=== PATIENT | male | born 1950 | race Caucasian/White ===

== ENCOUNTER 2025-01-11 14:19 | Inpatient (IN) | payer OTHER, MEDICARE ==
[~2025-01-11] VITALS: Ht 182.9 cm; Wt 87.8 kg
--- NOTE | 2025-01-11 14:37 | ELECTROCARDIOGRAPH REPORT ---
[facility] Test Date: 2025-01-11 Test Time: 14:28:46 Pat Name: JOHN CUENCA Department: EMERGENCY ROOM Room: [place] [address] Gender: M Deburr Operator: PATRICK : 1950 Requested By: DEPARTMENT EMERGENCY Order Number: [id number] Reading MD: Dr. Cristian Castro Measurements Intervals Renick Rate: 63 P: 10 CO: 170 QRS: 15 QRSD: 105 T: 33 QT: 425 QTc: 436 Interpretive Statements Sinus rhythm Electronically Signed On 01-13-2025 19:27:[address] Cristian Castro Please click the below link to view image of tracing.
--- NOTE | 2025-01-11 14:50 | Physician Documentation ---
History of Present Illness ~ Chief Complaint: Chest Pain Stated Complaint: CP Time Seen by MD: 14:42 HPI This very pleasant 74-year-old male presents to the ED after experiencing 30 minutes of left-sided chest pain which included shortness of breath nausea and weakness. Up upon arrival of EMS he received one dose of nitro which alleviated his chest pain and shortness of breath. Patient also receives 324 of aspirin EN route He went from 150 systolic to the low 100s. Initial EKG showed no signs of ST-elevation and was sinus rhythm without any axis deviation At this time patient states he has 2/10 chest pain but feels much better. The patient denies any cardiac history however he is being treated for hypertension and hyperlipidemia. he takes atorvastatin and amlodipine. Day of Onset: Jan 11, 2025 Medication Reconciliation Allergies: Coded Allergies: No Known Allergies (Unverified , 01/11/25) Review of Systems All Other Systems at this time: Reviewed and Negative ROS As stated above in the HPI, otherwise all systems are reviewed and negative. Physical Exam Vital Signs: Temperature: 98.5, Source: Oral, Heart Rate: 64, Respiratory Rate: 12, BP: 110/56, Pulse Oximetry: 96, Weight: 87.800 Physical Exam General: Alert, no apparent distress. Respiratory: Lungs clear, no respiratory distress. Chest: No accessory muscle use. Cardiovascular: Regular rate and rhythm, no murmurs. Gastrointestinal: Soft, nontender, nondistended. Bowels sounds present. Extremities: Normal range of motion, no deformity. Neurologic: Oriented x4. Psychiatric: Normal mood and affect. Skin: Normal color, warm and dry. No edema, no ecchymosis. Progress Results/Orders Results/Orders Orders - JUSTINO HWANG NP Nitroglycerin Sublingual Tab (Nitrostat (01/11/25 16:20) Page Hospitalist (01/11/25 ) Medications Received in ER Medications (Trade) Dose Ordered Sig/Nicolas Route PRN Reason Start Time Stop Time Status Last Admin Dose Admin (Nitrostat SL tablet) 0.4 mg Q5M PRN SL Chest pain Q5min PRNx3-call 01/11/25 16:20 01/11/25 16:22 0.4 MG Vital Signs 01/11/25 01/11/25 01/11/25 14:36 15:12 15:30 Temp 98.5 Pulse 64 60 Resp 12 15 B/P (MAP) 110/56 124/61 (82) Pulse Ox 96 97 O2 Flow Rate 0 Laboratory Tests Test 01/11/25 14:55 01/11/25 16:53 White Blood Count 6.1 Red Blood Count 3.66 L Hemoglobin 12.0 L Hematocrit 35.4 L Mean Corpuscular Volume 96.8 Mean Corpuscular Hemoglobin 32.7 H Mean Corpuscular Hemoglobin Concent 33.8 Red Cell Distribution Width 14.3 Platelet Count 256 Mean Platelet Volume 7.9 Neutrophils (%) (Auto) 59.7 Lymphocytes (%) (Auto) 25.9 Monocytes (%) (Auto) 12.1 H Eosinophils (%) (Auto) 1.9 Basophils (%) (Auto) 0.4 Neutrophils # (Auto) 3.6 Lymphocytes # (Auto) 1.6 Monocytes # (Auto) 0.7 Eosinophils # (Auto) 0.1 Basophils # (Auto) 0.0 CBC Comment Sodium Level 141 Potassium Level 3.6 Chloride Level 107 Carbon Dioxide Level 25.7 Anion Gap 8 Blood Urea Nitrogen 22 H Creatinine 1.07 Estimated GFR/1.73 m2 68 BUN/Creatinine Ratio 20.6 H Glucose Level 128 H Calcium Level 8.1 L Troponin I High Sensitivity 4 Pro-B-Type Natriuretic Peptide 112 Albumin 3.4 Chemistry Comments Medical Decision Making Findings At approximately four teen 100 patient began to have chest pain again. Nursing staff gave the patient 0.4 sublingual nitro which alleviate his chest pain. The patient did not did not test positive for troponins or an elevated proBNP nor was his x-ray concerning for cardiomegaly. At this time, I am going to request hospitalization for cardiology evaluation. Departure Disposition: ADMITTED INPATIENT Impression: Primary Impression: Chest pain Additional Impression: Acute chest pain Condition: Stable Referrals: NO PRIMARY CARE PROVIDER (PCP) Signature Scribe Signature: e Attestation: Scribed for Justino Hwang Alpine Patroller by Justino Rodriguez NP . 01/11/25 16:35 JUSTINO HWANG NP Jan 11, 2025 14:50
[2025-01-11 15:02] LABS: MEAN PLATELET VOLUME 7.9 FL (7.4-10.4); RED CELL DISTRIBUTION WIDTH 14.3 % (11.5-14.5)
--- NOTE | 2025-01-11 15:05 | RADIOLOGY REPORT ---
CHEST RADIOGRAPH Indication: CP Technique: Single frontal view of the chest was obtained Comparison: None FINDINGS: Lines and Tubes: None Lungs: No focal consolidation. Pleura: No effusion. No pneumothorax. Cardiomediastinal contours: Unremarkable Bones: No acute osseous abnormality. IMPRESSION: No acute cardiopulmonary disease.
[2025-01-11 15:24] LABS: CREATININE 1.07 MG/DL (0.60-1.10); PRO BRAIN NATRIURETIC PEPTIDE 112 PG/ML (0-125); TOTAL CARBON DIOXIDE 25.7 MMOL/L (24-32); eCRCL 67 ML/MIN; eGFR 68 ML/MIN
--- NOTE | 2025-01-11 18:12 | HISTORY AND PHYSICAL-Residence ---
History & Physical Providers to CC Resident Creating Document: JOE SÁNCHEZ, RES ~ History of Present Illness Primary Medical Doctor: Dr. Greer. [facility] Reason for Admit\Complaint: Chest pain History of Present Illness PCP: [facility]. Dr. 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 74-year-old male patient with past medical history of hypertension and dyslipidemia came to the hospital with chief complaint of chest pain. The patient state that early this afternoon around 1:15 p.m. he started feeling left-sided chest pain described as stabbing type, with radiation to the left shoulder, 6/10 in intensity. The patient mentioned that the pain did not improve reason for which he decided to come to the hospital. When the patient was in the emergency department he received two doses of nitroglycerin which helped with the pain until the complete resolution. The patient describes that this is the 1st time that he has a pain like this. Associated to his pain the patient also endorses some shortness of breath, associated lightheadedness and nausea which also resolved after the nitroglycerin. As per patient he usually walks by himself without use of cane or walker. At this moment the patient denies any chest pain, shortness of breath, palpitations, urinary or intestinal symptoms. Allergies: Coded Allergies: No Known Allergies (Unverified , 01/11/25) Past Medical History Past Medical History Hypertension taking amlodipine 10 mg HS Dyslipidemia taking atorvastatin 40 mg daily. Past Surgical History Surgical History Comment Tonsillectomy at the age of [age] years old. Past Social History Smoking: Non-Smoker Alcohol Use: None Drug Use: None Lives with: Spouse Lives In: Home Occupation: retired (The patient is a ) ROS All Other Systems: Reviewed and Negative Exam Vitals: Vital Signs Date Time Temp Pulse Resp B/P (MAP) Pulse Ox O2 Delivery O2 Flow Rate FiO2 01/11/25 17:49 12 146/62 (90) 97 0 01/11/25 15:12 60 01/11/25 14:36 98.5 Physical exam: General: Well alert, well oriented, not confused, not agitated, not in acute distress, well cooperated during the physical. HEENT: Conjunctive are pink, sclerae clear, no icterus, pupil is equal in both sides, reactive to light, no ear discharge, no pharyngeal erythema or an edema. Neck: Supple, no JVD, no lymphadenopathy and thyromegaly. Chest: Equal air entry on both lungs, no additional sounds no rhonchi no wheezing at the moment. Cardiovascular: S1-S2 regular sinus rhythm and, regular rate, presence of systolic murmur best heard in the 2nd intercostal space. Abdomen: No visible peristalsis, Bowel sounds present on auscultation, soft, nontender, no guarding, no rigidity Extremities: No obvious deformities, no pitting edema bilaterally, capillary refill intact, peripheral pulsations are intact on both sides Central Nervous System: No focal neurological deficits, no motor or sensory weakness in all 4 extremities, could move all 4 extremities, 2+ deep tendon reflexes, negative Babinski. Musculoskeletal: No joint swelling, deformities, inflammations, and no scoliosis and back tenderness Skin: Warm and dry, presence of dermatitis stasis changes in bilateral lower extremities, as per patient he got an PERLA with normal results Diagnostic Data Last Recorded Lab Results: 01/11/25 1455 01/11/25 1455 Advance Care Planning Advanced Care plannin - 30 Minutes (I spent a total of 17 minutes on reviewing various resuscitative measures/ACP with the patient at the time of admission. The patient has decided on a full code status.) Additional Plan Assessment and plan: 74-year-old male patient came to the hospital with chief complaint of chest pain. Chest pain: Heart score: 5 points: Possible unstable angina: The patient came to the hospital with chief complaint of chest pain localized in the left side of his chest with radiation to the left arm. The pain resolved after nitroglycerin. Electrocardiogram without ST elevation. Normal sinus rhythm, normal axis, normal NV and QRS. Troponin levels within reference range: 4-5-5. Follow-up lipid panel and TSH. Follow-up hemoglobin A1c. Follow-up echocardiogram. Aspirin 325 mg one dose given. Aspirin 81 mg daily. Nitroglycerin as needed. NPO after midnight. Lexiscan in a.m. Hypertension: Current blood pressure 146/62. Amlodipine 10 mg daily. Dyslipidemia: Follow-up lipid panel. Continue atorvastatin 40 mg daily. Normocytic hyperchromic anemia: Hemoglobin 12.0, hematocrit 35.4. Follow-up iron studies. Code status: Full code DVT prophylaxis: SCDs, heparin Analgesia/sedation: Morphine Line/tube: PIV GI prophylaxis: None Nutrition: Heart healthy diet. NPO after midnight PT: Ordered Prognosis: Guarded Disposition: The patient will be admitted to PCU with telemetry. Joe Lyles Internal Medicine Resident [facility] Date of Service: Jan 11, 2025 Billing Provider: TERRI ROGERS MD Common Visit Codes: [id number] INP/OBS CARE (HIGH) Secondary Visit Codes: 70663-[id number] CARE PLAN 30 MINUTES JOE SÁNCHEZ, RES Jan 11, 2025 18:12 TERRI ROGERS MD Jan 12, 2025 20:05
[2025-01-11] MEDS ORDERED: magnesium sulf-water 4G/100mL 100 ML IV PRN (18:15)
[2025-01-11] MEDS ORDERED: magnesium Cl slow-release 64mg tablet PO PRN (18:15)
[2025-01-11] MEDS ORDERED: potassium Cl 40MEQ/1/2NS 520ml 520 ML IV PRN (18:15)
[2025-01-11] MEDS ORDERED: magnesium sulf-water 2g/50mL 50 ML IV PRN (18:15)
[2025-01-11] MEDS ORDERED: mag hydrox/Alum hydrox/simeth 30ml oral suspension PO PRN (18:15)
[2025-01-11] MEDS ORDERED: potassium Cl 20 mEq SR tablet PO PRN ×2 (18:15)
[2025-01-11] MEDS ORDERED: magnesium hydroxide 30ml (MOM) UD suspension PO PRN (18:15)
[2025-01-11] MEDS ORDERED: aminophylline 250mg/10ml inj. IV PRN (18:20)
[2025-01-11] MEDS ORDERED: metoprolol tartrate 1mg/ml inj IV PRN (18:20)
[2025-01-11] MEDS: normal saline 1000ml 1,000 ML IV SCH (18:42)
[2025-01-11] MEDS ORDERED: ATOR40TA PO (18:51)
[2025-01-11] MEDS ORDERED: AMLO1CAP62 PO (18:51)
[2025-01-11 19:09] LABS: % IRON SATURATION 15 % (11-46)
[2025-01-11 19:23] LABS: CHOL/HDL RATIO 2.6 (0.00-4.99); LDL CHOLESTEROL 56 MG/DL (50-100)
[2025-01-11] MEDS: K and/or MAG REPLACEMENT MC SCH (20:00)
[2025-01-11] MEDS: heparin, porcine 5000 units/ml vial SQ SCH (20:49)
[2025-01-11 21:30] VITALS: BP 125/60; PULSE 64; RESP 12; TEMP 97.6; O2SAT 96
[2025-01-11 22:00] VITALS: BP 113/51; PULSE 58; RESP 12; RESP 16; TEMP 97.5; O2SAT 95; O2SAT 96
[2025-01-12] VITALS (20 sets, daily range): BP systolic 98–147; BP diastolic 47–72; PULSE 53–83; RESP 12–18; TEMP 97.5–99.1; O2SAT 92–98
[2025-01-12 05:35] LABS: URINE AMPHETAMINE SCREEN NEGATIVE (Neg); URINE BARBITUATE SCREEN NEGATIVE (Neg); URINE BENZODIAZEPINES SCREEN NEGATIVE (Neg); URINE CANNABINOID SCREEN NEGATIVE (Neg); URINE COCAINE SCREEN NEGATIVE (Neg); URINE METHADONE SCREEN NEGATIVE (Neg); URINE OPIATE SCREEN NEGATIVE (Neg); URINE PHENCYCLIDINE SCREEN NEGATIVE (Neg)
[2025-01-12 06:24] LABS: MEAN PLATELET VOLUME 8.0 FL (7.4-10.4); RED CELL DISTRIBUTION WIDTH 14.3 % (11.5-14.5)
[2025-01-12 06:40] LABS: CHOL/HDL RATIO 2.3 (0.00-4.99); CREATININE 0.96 MG/DL (0.60-1.10); LDL CHOLESTEROL 50 MG/DL (50-100); TOTAL CARBON DIOXIDE 25.7 MMOL/L (24-32); eCRCL 75 ML/MIN; eGFR 77 ML/MIN
[2025-01-12 08:33] LABS: APTT 26 SECONDS (22-32)
[2025-01-12] MEDS: aspirin 81mg, enteric-coated 1 TAB TABLET.DR PO SCH (10:04)
[2025-01-12] MEDS: regadenoson 0.4mg/5ml syringe IV PRN (11:12)
[2025-01-12] MEDS: ondansetron/PF 4mg/2ml inj IV PRN (11:31)
--- NOTE | 2025-01-12 14:02 | RADIOLOGY REPORT ---
EXAM: NM NM BRIGID SCAN History: Chest pain Comparison Study: DI CHEST,SINGLE VIEW on DOS: 01/11/25 TECHNIQUE: Resting myocardial perfusion imaging was performed approximately 30 minutes following the injection of 8.18 mCi of Tc-99m sestamibi. Peak pharmacologic stress, the patient was injected with 3 2.98 mCi of Tc-99m sestamibi. Gated post stress images were acquired in the supine and prone position s approximately 30 minutes after stress and left ventricular ejection fraction (LVEF) was calculated. Findings: The overall quality of the study is adequate. The left ventricular cavity is noted to be normal. There is no evidence of abnormal lung activity. Additionally, the right ventricle appears normal. Myocardial perfusion images demonstrate a moderate-sized, ozwb-ip-[id number] intensity perfusion defect in the proximal to distal inferior wall which is fixed. Small size, moderate intensity perfusion def ect in the apex which is reversible. Gated imaging reveals normal thickening and wall motion with a calculated LVEF of 64 % with end-diast olic volume of 92 mL at stress. Impression: 1. Small size, moderate intensity perfusion defect in the apex which is reversible, favored ischemic. 2. Moderate-size, hmks-xf-sjjkwemo intensity perfusion defect in the proximal to distal inferior wall which is fixed, favored infarct. 3. Overall gated left ventricular systolic function was normal with calculated LVEF of 64 % at stress . 4. No left ventricular dilatation.
--- NOTE | 2025-01-12 14:25 | RADIOLOGY REPORT ---
CLINICAL INDICATION: left shoulder pain TECHNIQUE: 3 radiographic views of the left shoulder were obtained. Comparison: None FINDINGS/IMPRESSION: There is no evidence of acute fracture or dislocation. The visualized joint space is well maintained. The alignment is anatomical. There is no radiopaque foreign body.
--- NOTE | 2025-01-12 16:57 | CARDIOLOGY REPORT ---
APPROVED REPORT EXAM: Comprehensive 2D, Doppler, and color-flow Echocardiogram. Patient Location: [address]Y Blood Pressure: 109/55 mmHg Heart Rate: 58 bpm Indications Chest Pain NO VISCERA WASHER NO Previous ECHO 2D Dimensions LA Diam3.0 cm IVSd 1.1 (0.7-1.1cm) LVDd 4.7 cm PWd 1.1 (0.7-1.1cm) IVSs 1.4 (0.8-1.2cm) LVDs 2.9 (2.5-4.0cm) PWs 1.5 (0.8-1.2cm) LVOT Diameter 1.96 (1.8-2.4cm) LVEF(%) 68.0 (>50%) Ao Asc Diam.2.97 cm IVC 9.50 mmFS (%) 37.9 % SV 68.6 ml CO 4.3 L/min M-Mode Dimensions Left Atrium(MM) 3.52 (2.5-4.0cm) Aortic Root 2.88 (2.2-3.7cm) Aortic Cusp Exc 1.42 (1.5-2.0cm) MV EPSS 0.4 (<0.5cm) Aortic Valve AoV Peak Latrell. 179.1 cm/s AoV VTI 35.8 cm AO Peak GR. 12.8 mmHg AO Mean GR. 7 mmHg LVOT VTI 23.87 cm LVOT Peak Latrell. 99.4 cm/s MARIANA(VTI)/BSA 2.02 cm2/m2 MARIANA (VTI) 2.02 cm2 Mitral Valve MV E Velocity 80.8 cm/s MV Peak Gr. 3 mmHg MV DECEL TIME 180 ms MV A Velocity 62.6 cm/s MV PHT 80 ms E/A Ratio 1.3 MVA (PHT) 2.75 cm2 MV VMax87.6 cm/s TDI Lateral E' P. V13.23 cm/s E/Lateral E' 6.1 Tricuspid Valve TR P. Velocity 279 cm/s RAP ESTIMATE 10 mmHg TR Peak Gr. 31 mmHg RVSP 41 mmHg LEFT VENTRICLE Normal LV size and wall thickness. Overall systolic function is normal. overall LVEF is 65-70%. RIGHT VENTRICLE Right ventricle is mildly dilated with adequate function. ATRIA The left atrium size is normal. AORTIC VALVE Trileaflet AV appears mildly sclerotic without stenosis. No insufficiency. MITRAL VALVE Mitral valve leaflets are mildly thickened with mild annular calcification. No stenosis. Trace regurg itation. TRICUSPID VALVE The tricuspid valve is normal in structure with mild to moderate regurgitation. PULMONIC VALVE Pulmonic valve is grossly normal in structure with physiologic insufficiency. GREAT VESSELS The aortic root is normal in size. The ascending aorta is normal in size. The IVC is normal in size a nd collapses >50% with inspiration. PERICARDIUM Normal pericardium. No effusion. Other Information Study Quality: Adequate Conclusion overall LVEF is 65-70%. Normal LV size and wall thickness. Overall systolic function is normal. Right ventricle is mildly dilated with adequate function. Trileaflet AV appears mildly sclerotic without stenosis. No insufficiency. Mitral valve leaflets are mildly thickened with mild annular calcification. No stenosis. Trace regu rgitation. The tricuspid valve is normal in structure with mild to moderate regurgitation. Pulmonic valve is grossly normal in structure with physiologic insufficiency. Normal pericardium. No effusion.
--- NOTE | 2025-01-12 17:50 | PROGRESS NOTE- Residence ---
Progress Note - Resident Providers to CC Resident Creating Document: AIRAM MARKGABRIEL Luke, RES ~ Antibiotic Timeout Antibiotic Ordered?: No Subjective The patient has been evaluated at the bedside. The patient reports that is currently pain-free. States that he had one episode of chest pain early in the morning. Objective Vital Signs Date Time Temp Pulse Resp B/P (MAP) Pulse Ox O2 Delivery O2 Flow Rate FiO2 01/12/25 15:00 97.8 70 18 107/55 (72) 94 Room Air 01/12/25 08:00 0.0 Physical exam: General: Well alert, well oriented, not confused, not agitated, not in acute distress, well cooperated during the physical. HEENT: Conjunctive are pink, sclerae clear, no icterus, pupil is equal in both sides, reactive to light, no ear discharge, no pharyngeal erythema or an edema. Neck: Supple, no JVD, no lymphadenopathy and thyromegaly. Chest: Equal air entry on both lungs, no additional sounds no rhonchi no wheezing at the moment. Cardiovascular: S1-S2 regular sinus rhythm and, regular rate, presence of systolic murmur best heard in the 2nd intercostal space. Abdomen: No visible peristalsis, Bowel sounds present on auscultation, soft, nontender, no guarding, no rigidity Extremities: No obvious deformities, no pitting edema bilaterally, capillary refill intact, peripheral pulsations are intact on both sides Central Nervous System: No focal neurological deficits, no motor or sensory weakness in all 4 extremities, could move all 4 extremities, 2+ deep tendon reflexes, negative Babinski. Musculoskeletal: No joint swelling, deformities, inflammations, and no scoliosis and back tenderness Skin: Warm and dry, presence of dermatitis stasis changes in bilateral lower extremities, as per patient he got an PERLA with normal results Result Diagram: 01/12/25 0548 01/12/25 0548 Coagulation Studies Laboratory Tests Test 01/12/25 07:56 Activated Partial Thromboplast Time 26 SECONDS (22-32) Coagulation Comments Assessment Assessment Assessment and plan: 74-year-old male patient came to the hospital with chief complaint of chest pain. Chest pain: Possible coronary artery disease: Heart score: 5 points: The patient came to the hospital with chief complaint of chest pain localized in the left side of his chest with radiation to the left arm. The pain resolved after nitroglycerin. Electrocardiogram without ST elevation. Normal sinus rhythm, normal axis, normal HI and QRS. Troponin levels within reference range: 4-5-5. Aspirin 325 mg one dose given. Aspirin 81 mg daily. Nitroglycerin as needed. 01/12/2025: Echocardiogram: overall LVEF is 65-70%. Normal LV size and wall thickness. Overall systolic function is normal. Right ventricle is mildly dilated with adequate function. Trileaflet AV appears mildly sclerotic without stenosis. No insufficiency. Mitral valve leaflets are mildly thickened with mild annular calcification. No stenosis. Trace regurgitation. The tricuspid valve is normal in structure with mild to moderate regurgitation. Pulmonic valve is grossly normal in structure with physiologic insufficiency. Normal pericardium. No effusion. Lexiscan: Small size, moderate intensity perfusion defect in the apex which is reversible, favored ischemic. Moderate-size, nfzb-zu-lfbbjsvs intensity perfusion defect in the proximal to distal inferior wall which is fixed, favored infarct. Overall gated left ventricular systolic function was normal with calculated LVEF of 64 % at stress. No left ventricular dilatation. Continue aspirin 81 mg daily. Atorvastatin 40 mg daily. Metoprolol 25 mg daily. Nitroglycerin as needed for chest pain. Cardiology, Dr. Alexander consulted. Awaiting recommendations. Hypertension: Current blood pressure 146/62. Currently on metoprolol 25 mg. Dyslipidemia: LDL 56. Atorvastatin 40 mg daily. Normocytic hyperchromic anemia: Hemoglobin 12.0, hematocrit 35.4. Iron 41, TIBC is 271, ferritin 162. Consistent with anemia of chronic disease. Code status: Full code DVT prophylaxis: SCDs, heparin Analgesia/sedation: Morphine Line/tube: PIV GI prophylaxis: None Nutrition: Heart healthy diet. PT: Ordered Prognosis: Guarded Disposition: Cardiology Dr. Alexander consulted. Continue medical management. Gabriel Lyles Internal Medicine Resident [facility] Date of Service: Jan 12, 2025 Billing Provider: TERRI ROGERS MD Common Visit Codes: [id number] INP/OBS CARE(HIGH) GABRIEL SÁNCHEZ, RES Jan 12, 2025 17:50 TERRI ROGERS MD Jan 12, 2025 20:06
[2025-01-12] MEDS: metoprolol succinate 25mg (24-HOUR) SR. Tablet PO SCH (17:57)
--- NOTE | 2025-01-12 18:38 | CONSULTATION REPORT ---
Cardiac Consultation Report Providers to CC ~ Subjective Subjective Cardiology consultation: I was asked by the hospitalist residency Service to see this patient in consultation was hospitalized for anginal chest pain relieved by nitroglycerin. He has treated hypertension hyperlipidemia with amlodipine and atorvastatin. He goes to the [facility]. As his troponins were normal he had a nuclear stress test which showed inferior and apical reversible ischemia with associated angina. Presently he is pain-free. Allergies none known prior surgery tonsillectomy. He denies cigarette and alcohol use. Objective Vitals Vital Signs Date Time Temp Pulse Resp B/P (MAP) Pulse Ox O2 Delivery O2 Flow Rate FiO2 01/12/25 15:00 97.8 70 18 107/55 (72) 94 Room Air 01/12/25 08:00 0.0 Lab Results: 01/12/25 0548 01/12/25 0548 Objective Carotid no bruit chest clear to auscultation percussion heart no murmur no S3 gallop no rub abdomen active bowel sounds no bruits pulses plus two in upper and lower extremities. Ocular motion intact no nystagmus no tremors speech fluent gait not tested. Coagulation Studies Laboratory Tests Test 01/12/25 07:56 Activated Partial Thromboplast Time 26 SECONDS (22-32) Coagulation Comments Other Results Echocardiography [id number] tricuspid regurgitation with an RVSP of 41 mm Hg. Normal left and right ventricular contractility. Ejection fraction 66%. Problem\Assessment\Plan Additional Plan Impression crescendo angina rest pain. Abnormal nuclear stress test large segment reversible. Recommendation diagnostic coronary angiography intervention as may be needed.: Risks benefits alternatives discussed with patient and he wants to proceed. He is going to contact his . She does not drive but the son is with them and he may bring her in. Risks include and not restricted to stroke myocardial infarction renal failure neurologic vascular complications bleeding complications allergic reaction. Intervention with its attendant complications including emergency coronary bypass grafting. Charge nurse contacted to bring the laborer pole crew in to follow up prior case. DIONNA HWANG MD Jan 12, 2025 18:38
[2025-01-12] MEDS ORDERED: fentaNYL/PF 50MCG/1 ML 2ML syringe ONE (19:42)
[2025-01-12] MEDS ORDERED: LIDOcaine 1% 30ml preserv. free vial ONE (19:42)
[2025-01-12] MEDS ORDERED: iohexol 350 MG/ML 50ML vial IV ONE ×2 (19:42→20:56)
[2025-01-12] MEDS ORDERED: heparin 1,000unit/ml 10ml vial 0 ML ONE (19:42)
[2025-01-12] MEDS ORDERED: midazolam 1 mg/ML 2ml injection ONE (19:42)
[2025-01-12] MEDS ORDERED: heparin 1,000 UNITS/NS 500ml 500 ML ONE (20:44)
[2025-01-12] MEDS ORDERED: nitroGLYCERIN 500mcg/5mL D5W 5 ML IV ONE ×2 (21:07)
--- NOTE | 2025-01-12 21:42 | CARDIAC CATH REPORT ---
Cardiology Post Cath Findings Findings Findings: Cardiology post catheterization note: Uncomplicated left heart catheterization coronary arteriography angiography aortography right iliofemoral arteriogram Angio-Seal application. Indication: Angina pectoris nitroglycerin relief Lexiscan with apical reversible ischemia equivocal inferior wall. 1. Normal left ventriculogram 2. Normal left coronary artery left anterior descending left circumflex 3. Immediate branch from left circumflex and 1st obtuse marginal with 40% narrowing. 4. 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 5. Multiple catheters did not approximate the anomalous right coronary artery. A suboptimal image was obtained with an Amplatz one catheter proximal midportion distal midportion of the right coronary with 10% narrowings. There appears to be a 70+ % stenosis at the bifurcation of a small posterior descending and posterolateral branch. However without excellent opacification this is uncertain. Recommendation: Medical therapy as initiated at [facility]. Ambulate patient tomorrow if stable could be discharged for [facility] with [facility]. A coronary angiogram disc has been ordered for the patient he should take that with him when he is discharged to give to the [facility]. He requires referral to a higher level of care where they may find cap catheters that fit the anomalous right coronary arising from the left coronary cusp. He should also have a CT coronary angiogram which is not performed at this hospital. DIONNA HWANG MD Jan 12, 2025 21:42
[2025-01-12] MEDS ORDERED: HYDROcodone/acetaminophen 5mg/325mg tablet PO PRN (22:15)
[2025-01-12] MEDS ORDERED: ondansetron/PF 4mg/2ml inj IV PRN (22:15)
[2025-01-12] MEDS ORDERED: OXAZEpam 15mg capsule PO PRN (22:15)
[2025-01-12] MEDS ORDERED: HYDROcodone/acetaminophen 10/325mg tab PO PRN (22:15)
[2025-01-12] MEDS: normal saline 1000ml 1,000 ML IV SCH (23:55)
[2025-01-13] VITALS (8 sets, daily range): BP systolic 125–139; BP diastolic 59–72; PULSE 60–70; RESP 14–16; TEMP 97.3–98.7; O2SAT 94–96
[2025-01-13 06:47] LABS: MEAN PLATELET VOLUME 7.9 FL (7.4-10.4); RED CELL DISTRIBUTION WIDTH 14.0 % (11.5-14.5)
[2025-01-13 07:06] LABS: CREATININE 0.96 MG/DL (0.60-1.10); TOTAL CARBON DIOXIDE 25.5 MMOL/L (24-32); eCRCL 75 ML/MIN; eGFR 77 ML/MIN
[2025-01-13] MEDS ORDERED: METO-395 PO (10:07)
[2025-01-13] MEDS ORDERED: PANT40TA54 PO (10:07)
[2025-01-13] MEDS ORDERED: CLOP75TA34 PO (10:07)
[2025-01-13] MEDS ORDERED: ASPI-1265 PO (10:07)
--- NOTE | 2025-01-13 10:24 | CARDIOLOGY REPORT ---
DATE OF SERVICE: 01/12/2025 DICTATING PHYSICIAN: Tristen Alexander MD PROCEDURES: * Left heart catheterization. * Left ventriculography. * Ascending aortography. * Selective left and right coronary arteriography. * Right iliofemoral arteriogram, Angio-Seal application. * Conscious sedation administration 75 minutes. BRIEF HISTORY/INDICATION: A 74-year-old male came to the hospital, received nitroglycerin along the way and became pain-free. Troponins were normal. He had a nuclear stress test showing partially fixed and reversible inferior wall defect and inferoapical reversible defect. Risks, benefits, and alternatives of diagnostic heart catheterization were discussed with him and he has decided to proceed. Risks included but not restricted to , stroke, myocardial infarction, renal failure, neurologic, vascular complication, bleeding complications, or allergic reaction. TECHNIQUE: Following usual sterile preparation and draping, the right groin was infiltrated with 10 mL of 1% lidocaine and local anesthetic. Conscious sedation was achieved with 2 mg Versed, 75 mcg of fentanyl, 25 mg of Benadryl intravenously. Due to elevated blood pressure and substernal chest pain without any EKG changes, he received nitroglycerin 150 mcg intra-arterially with resolution of chest pain and elevated pressure. At termination, right iliofemoral arteriogram was performed. Angio-Seal was applied in electroplating laborer. Hemostasis was obtained. There were no complications. 250 mL of Omnipaque 350 contrast was administered. Fluoroscopy time was 15.2 minutes. Radiation exposure was 10,467 cGy/cm2. FINDINGS: AO 169/74, LV 169/11-26. LEFT VENTRICULOGRAM: Normal contractility, ejection fraction of 70%. 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 Left main coronary, 10% narrowing. Left anterior descending, 15% narrowings. Left circumflex, 20% narrowing. Large vessel supplying posterolateral branches. First intermediate arises from the left anterior descending has 20% narrowing. Second intermediate has 40% narrowing. An obtuse marginal has a 40% narrowing. Right coronary arises from the left coronary cusp. There appears to be a 70% stenosis distally prior to small posterior descending posterolateral bifurcation. It is very distal in the right coronary course. There is no left to right collateralization noted. RESULTS: * Normal left ventriculogram, ejection fraction of 70%, elevated left ventricular end diastolic pressure. * Aortography, right coronary arises from the left coronary cusp, inferior and posterior to the left main coronary artery. * Left main coronary with 10% narrowing. * Left anterior descending 50% narrowing. * Left circumflex 20% narrowing. * First intermediate branch with 20% narrowing, second intermediate branch with 40% narrowing, obtuse marginal with 40% narrowing. * Right coronary 70% distal narrowing prior to small posterior descending, posterolateral branches. It appears that . However, opacification is and I would not consider it diagnostic. COMMENT: * Angiograms were shown to the patient in electroplating laborer. 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 * He should be continued on aspirin, Plavix, statins, beta-allegra, nitrates as needed. Tristen Alexander MD TID: [id number] RECEIPT: [id number] RUPERTO/CORRIE/SAHARA cc: [facility]
--- NOTE | 2025-01-13 14:12 | DISCHARGE SUMMARY-Residence ---
Discharge Summary Providers to CC Resident Creating Document: GABRIEL SÁNCHEZ, RES ~ Discharge Summary Admission Diagnosis: Chest pain Hospital Course DATE OF ADMISSION: 01/11/2025 DATE OF DISCHARGE: 01/13/2025 Discharge Diagnosis\Comment: Right coronary artery stenosis Chronic Heart failure with preserved ejection fraction Hypertension Dyslipidemia Anemia of chronic disease Operations\Procedures: Coronary angiogram Wes Consultants: Cardiology, Dr. Alexander Complications: None Condition on DC: Stable New Medications: Aspirin (Aspirin) 81 Mg Tab.chew 1 TAB PO DAILY for 30 Days, #30 TAB.CHEW Clopidogrel Bisulfate (Clopidogrel) 75 Mg Tablet 75 MG PO DAILY for 30 Days, #30 TAB Metoprolol Succinate (Metoprolol Succinate) 25 Mg Tab.sr.24h 1 TAB PO DAILY for 30 Days, #30 TAB 0 Refills Pantoprazole Sodium (Pantoprazole Sodium) 40 Mg Tablet.dr 40 MG PO DAILY for 30 Days, #30 TAB.SR Continued Medications: Atorvastatin Calcium* (Lipitor*) 40 Mg Tablet 1 TAB PO HS for 30 Days, #30 TAB Discontinued Medications: Amlodipine Besylate/Benazepril (Lotrel 10-20 Mg Capsule) 1 Each Capsule 1 CAP PO DAILY for 30 Days, #30 CAP 0 Refills Discharge Summary: HPI: PCP: [facility]. Dr. Gerer. The personal banker. 74-year-old male patient with past medical history of hypertension and dyslipidemia came to the hospital with chief complaint of chest pain. The patient state that early this afternoon around 1:15 p.m. he started feeling left-sided chest pain described as stabbing type, with radiation to the left shoulder, 6/10 in intensity. The patient mentioned that the pain did not improve reason for which he decided to come to the hospital. When the patient was in the emergency department he received two doses of nitroglycerin which helped with the pain until the complete resolution. The patient describes that this is the 1st time that he has a pain like this. Associated to his pain the patient also endorses some shortness of breath, associated lightheadedness and nausea which also resolved after the nitroglycerin. As per patient he usually walks by himself without use of cane or walker. At this moment the patient denies any chest pain, shortness of breath, palpitations, urinary or intestinal symptoms. Hospital course: 74-year-old male patient came to the hospital with chief complaint of chest pa in. Due to the risk factors the patient was admitted to the hospital, Lexiscan was obtained which showed small size, moderate intensity perfusion defect in the apex which is reversible favored for ischemia. Moderate size, mild to moderate intensity perfusion defect in the proximal to distal inferior wall which is fixed, favored infarct. Reason for which personal banker, Dr. Alexander was consulted who recommended coronary angiogram which was performed 01/12/2025. In the coronary angiogram LVEDP of 26 and 29 was evidenced. Upon the following day the patient denied any new episodes of chest pain. During this coronary angiogram Multiple catheters did not approximate the anomalous right coronary artery. He requires referral to a higher level of care where they may find cap catheters that fit the anomalous right coronary arising from the left coronary cusp. The patient remained hemodynamically stable, no signs of hematoma or bleeding in the site of approach for coronary angiogram. The patient will be discharged home. Discharge course: The patient remained hemodynamically stable. The patient will be discharged with the following instructions: Come back to the Emergency department or call 911 if severe chest pain, palpitations, shortness of breath, fever sensation signs of bleeding from scar is evidenced. [facility] up with coronary sten that you need in higher level of care. Take aspirin 81 mg 1 tablet daily. Take clopidogrel 1 tablet of 75 mg daily. Take atorvastatin 1 tablet of 40 mg daily. Take metoprolol 1 tablet of 25 mg daily. We discontinued your medciation amlodipine for blood pressure. Physical exam: General: Well alert, well oriented, not confused, not agitated, not in acute distress, well cooperated during the physical. HEENT: Conjunctive are pink, sclerae clear, no icterus, pupil is equal in both sides, reactive to light, no ear discharge, no pharyngeal erythema or an edema. Neck: Supple, no JVD, no lymphadenopathy and thyromegaly. Chest: Equal air entry on both lungs, no additional sounds no rhonchi no wheezing at the moment. Cardiovascular: S1-S2 regular sinus rhythm and, regular rate, presence of systolic murmur best heard in the 2nd intercostal space. Abdomen: No visible peristalsis, Bowel sounds present on auscultation, soft, nontender, no guarding, no rigidity Extremities: No obvious deformities, no pitting edema bilaterally, capillary refill intact, peripheral pulsations are intact on both sides Central Nervous System: No focal neurological deficits, no motor or sensory weakness in all 4 extremities, could move all 4 extremities, 2+ deep tendon reflexes, negative Babinski. Musculoskeletal: No joint swelling, deformities, inflammations, and no scoliosis and back tenderness Skin: Warm and dry, presence of dermatitis stasis changes in bilateral lower extremities, as per patient he got an PERLA with normal results. Vital Signs Date Time Temp Pulse Resp B/P (MAP) Pulse Ox O2 Delivery O2 Flow Rate FiO2 01/13/25 11:00 98.7 66 16 126/72 (90) 94 Room Air 01/13/25 08:45 0.0 Laboratory Tests Test 01/11/25 14:55 01/11/25 16:53 01/11/25 17:31 01/11/25 18:40 White Blood Count 6.1 X10'3 Red Blood Count 3.66 X10'6 Hemoglobin 12.0 g/dl Hematocrit 35.4 % Mean Corpuscular Volume 96.8 FL Mean Corpuscular Hemoglobin 32.7 PG Mean Corpuscular Hemoglobin Concent 33.8 g/dL Red Cell Distribution Width 14.3 % Platelet Count 256 X10'3 Mean Platelet Volume 7.9 FL Neutrophils (%) (Auto) 59.7 % Lymphocytes (%) (Auto) 25.9 % Monocytes (%) (Auto) 12.1 % Eosinophils (%) (Auto) 1.9 % Basophils (%) (Auto) 0.4 % Neutrophils # (Auto) 3.6 X10'3 Lymphocytes # (Auto) 1.6 X10'3 Monocytes # (Auto) 0.7 X10'3 Eosinophils # (Auto) 0.1 X10'3 Basophils # (Auto) 0.0 X10'3 CBC Comment Sodium Level 141 MMOL/L Potassium Level 3.6 MMOL/L Chloride Level 107 MMOL/L Carbon Dioxide Level 25.7 MMOL/L Anion Gap 8 Blood Urea Nitrogen 22 MG/DL Creatinine 1.07 MG/DL Estimated GFR/1.73 m2 68 ML/MIN BUN/Creatinine Ratio 20.6 Glucose Level 128 MG/DL Hemoglobin A1c 5.6 % Calcium Level 8.1 MG/DL Troponin I High Sensitivity 4 ng/L 5 ng/L 5 ng/L Pro-B-Type Natriuretic Peptide 112 PG/ML Albumin 3.4 G/DL Chemistry Comments Troponin I High Sens Percent Delta 25 % 0 % Troponin I Hi Sens Absolute Change 1 ng/L 0 ng/L Iron Level 41 UG/DL Total Iron Binding Capacity 271 UG/DL Percent Iron Saturation 15 % Ferritin 162 NG/ML Triglycerides Level 78 MG/DL Cholesterol Level 116 MG/DL LDL Cholesterol 56 MG/DL HDL Cholesterol 45 MG/DL Cholesterol/HDL Ratio 2.6 Thyroid Stimulating Hormone (TSH) 1.28 ulU/ml Test 01/12/25 04:50 01/12/25 05:48 01/12/25 07:56 01/13/25 06:12 Urine Opiates Screen Negative Urine Methadone Screen Negative Urine Fentanyl Screen Negative Urine Barbiturates Screen Negative Urine Phencyclidine Screen Negative Urine Amphetamines Screen Negative Urine Benzodiazepines Screen Negative Urine Cocaine Screen Negative Urine Cannabinoids Screen Negative Drug Screen Comment White Blood Count 6.0 X10'3 7.1 X10'3 Red Blood Count 3.45 X10'6 3.76 X10'6 Hemoglobin 11.3 g/dl 12.4 g/dl Hematocrit 33.3 % 36.0 % Mean Corpuscular Volume 96.5 FL 95.7 FL Mean Corpuscular Hemoglobin 32.8 PG 33.0 PG Mean Corpuscular Hemoglobin Concent 34.0 g/dL 34.5 g/dL Red Cell Distribution Width 14.3 % 14.0 % Platelet Count 233 X10'3 247 X10'3 Mean Platelet Volume 8.0 FL 7.9 FL Neutrophils (%) (Auto) 65.4 % 73.3 % Lymphocytes (%) (Auto) 21.6 % 16.9 % Monocytes (%) (Auto) 10.6 % 8.7 % Eosinophils (%) (Auto) 2.1 % 1.0 % Basophils (%) (Auto) 0.3 % 0.1 % Neutrophils # (Auto) 3.9 X10'3 5.2 X10'3 Lymphocytes # (Auto) 1.3 X10'3 1.2 X10'3 Monocytes # (Auto) 0.6 X10'3 0.6 X10'3 Eosinophils # (Auto) 0.1 X10'3 0.1 X10'3 Basophils # (Auto) 0.0 X10'3 0.0 X10'3 CBC Comment Sodium Level 141 MMOL/L 139 MMOL/L Potassium Level 3.6 MMOL/L 3.6 MMOL/L Chloride Level 108 MMOL/L 104 MMOL/L Carbon Dioxide Level 25.7 MMOL/L 25.5 MMOL/L Anion Gap 7 10 Blood Urea Nitrogen 18 MG/DL 16 MG/DL Creatinine 0.96 MG/DL 0.96 MG/DL Estimated GFR/1.73 m2 77 ML/MIN 77 ML/MIN BUN/Creatinine Ratio 18.8 16.7 Glucose Level 86 MG/DL 120 MG/DL Calcium Level 8.2 MG/DL 8.3 MG/DL Magnesium Level 2.1 MG/DL 2.0 MG/DL Total Bilirubin 0.4 MG/DL 0.5 MG/DL Aspartate Amino Transf (AST/SGOT) 13 U/L 57 U/L Alanine Aminotransferase (ALT/SGPT) 19 U/L 25 U/L Alkaline Phosphatase 103 IU/L 126 IU/L Total Protein 6.5 G/DL 6.9 G/DL Albumin 3.1 G/DL 3.2 G/DL Globulin 3.4 G/DL 3.7 G/DL Albumin/Globulin Ratio 0.9 0.9 Triglycerides Level 46 MG/DL Cholesterol Level 101 MG/DL LDL Cholesterol 50 MG/DL HDL Cholesterol 43 MG/DL Cholesterol/HDL Ratio 2.3 Chemistry Comments Activated Partial Thromboplast Time 26 SECONDS Coagulation Comments Imaging: Chest x-ray: No acute cardiopulmonary disease. Echocardiogram: overall LVEF is 65-70%. Normal LV size and wall thickness. Overall systolic function is normal. Right ventricle is mildly dilated with adequate function. Trileaflet AV appears mildly sclerotic without stenosis. No insufficiency. Mitral valve leaflets are mildly thickened with mild annular calcification. No stenosis. Trace regurgitation. The tricuspid valve is normal in structure with mild to moderate regurgitation. Pulmonic valve is grossly normal in structure with physiologic insufficiency. Normal pericardium. No effusion. Lexiscan: Small size, moderate intensity perfusion defect in the apex which is reversible, favored ischemic. Moderate-size, [id number] intensity perfusion defect in the proximal to distal inferior wall which is fixed, favored infarct. Overall gated left ventricular systolic function was normal with calculated LVEF of 64 % at stress. No left ventricular dilatation. *Problems/Diagnosis: (1) Coronary artery disease Status: Acute (2) Stenosis of right coronary artery Status: Acute (3) Chest pain Status: Acute Total Time Spent on D/C: > 30 Minutes Date of Service: Jan 13, 2025 Billing Provider: TERRI ROGERS MD Common Visit Codes: 79782-JUK/OBS DISCH DAY >30min GABRIEL SÁNCHEZ, RES Jan 13, 2025 13:53 TERRI ROGERS MD Jan 14, 2025 09:06
== END 2025-01-13 11:30 | disposition home or self-care (01) | DRG 287 ==
LOC: ER 14:21 → ED HOLD 16:42 → PCU 3S 21:32
PROVIDERS: ADMIT Internal Medicine; ATTEND Internal Medicine
PROC: 4A023N7 Measurement of Cardiac Sampling and Pressure, Left Heart, Percutaneous Approach (ICD-10-PCS; principal; 2025-01-12)
PROC: B2111ZZ Fluoroscopy of Multiple Coronary Arteries using Low Osmolar Contrast (ICD-10-PCS; 2025-01-12)
PROC: B2151ZZ Fluoroscopy of Left Heart using Low Osmolar Contrast (ICD-10-PCS; 2025-01-12)
PROC: B3101ZZ Fluoroscopy of Thoracic Aorta using Low Osmolar Contrast (ICD-10-PCS; 2025-01-12)
PROC: B41F1ZZ Fluoroscopy of Right Lower Extremity Arteries using Low Osmolar Contrast (ICD-10-PCS; 2025-01-12)
PROC: 4A02XM4 Measurement of Cardiac Total Activity, External Approach (ICD-10-PCS; 2025-01-12)
PROC: 3E033HZ Introduction of Radioactive Substance into Peripheral Vein, Percutaneous Approach (ICD-10-PCS; 2025-01-12)
DX: I25.110 Atherosclerotic heart disease of native coronary artery with unstable angina pectoris (principal); I50.32 Chronic diastolic (congestive) heart failure; E78.5 Hyperlipidemia, unspecified; I11.0 Hypertensive heart disease with heart failure; D63.8 Anemia in other chronic diseases classified elsewhere
CPT/HCPCS: 36415; 71045; 73030; 78452; 80048; 80053; 80061; 80305; 82728; 83036; 83540; 83550; 83735; 83880; 84443; 84484; 85025; 85730; 87081; 93005; 93017; 93306; 93458; 93567; 96360; 99152; 99153; 99285; A6258; A9500; C1760; G0378; J1644; J2003; J2250; J2405; J2785; J3010; J7030; Q9967